=== PATIENT | male | born 1960 | race Caucasian/White ===

== ENCOUNTER → 2017-02-21 | Day surgery (SDC) | payer MEDICARE ==
[~2017-02-21] MED LIST: ACETAMINOPHEN PO; ADVIL200 M1 PO; CIPRO PO; CRESTOR PO; LORTAB 10/500 T1 TAB PO; NEURONTIN100 MG PO; OXYCODONE HCL15 MG PO; PHENERGAN PO; [UNRECOGNIZED DRUG - OTHER] PO
--- NOTE | ~2017-02-21 | OR ---
Unit #: [id number] #: [id number] Patient: RYANNE CEDEÑO [id number] [address] [address] [id number] MR#: [id number] NAME: RYANNE CEDEÑO ROOM: Date of Procedure: 02/21/2017 Admission Date: 02/21/2017 Surgeon: Miki Mejia M.D. : 1960 Attending Physician: Miki Mejia M.D. Primary Care Physician: Al Haynes M.D. OPERATIVE REPORT PREOPERATIVE DIAGNOSES Neck pain, cervical radiculopathy, degenerative cervical disk disease, cervical herniated nucleus pulposus. POSTOPERATIVE DIAGNOSES Neck pain, cervical radiculopathy, degenerative cervical disk disease, cervical herniated nucleus pulposus. PROCEDURE PERFORMED Cervical epidural steroid injection with fluoroscopic guidance for needle localization. 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 The patient failed to settle with conservative treatment. He was last treated 6 months ago almost with cervical epidural steroid injections did very well. He had resurgence of the pain after recently riding his motorcycle. It is not quite as bad as it was, but in the same distribution and in same nature, so the plan is to repeat epidural steroid injection today. DESCRIPTION OF PROCEDURE The patient was placed in the seated position. Standard monitors were applied. Sterile prep and drape of the cervical area was performed. The skin then at the C6 level was localized with 1% lidocaine. An 18-gauge [employer] Float[employer] needle was then advanced via hanging drop technique and fluoroscopic guidance in toward the epidural space. After confirming proper positioning with fluoroscopy and radiographic contrast, 80 mg of Depo-Medrol and 2 mL of 0.125% bupivacaine were deposited. The patient tolerated the procedure otherwise well and was discharged to recovery room in stable condition. Dictated by... Miki Mejia M.D. LHP/modl TD: 02/21/2017 23:53 JOB #: [id number] Unit #: [id number] #: [id number] Patient: RYANNE CEDEÑO OPERATIVE REPORT Page 1 of 1 X Miki Mejia MD X PROCEDURE OPERATIVE NOTE
== END | disposition home or self-care (01) ==
LOC: CCSC 09:27
DX: M50.122 Cervical disc disorder at C5-C6 level with radiculopathy (principal); M25.78 Osteophyte, vertebrae; M19.90 Unspecified osteoarthritis, unspecified site; F32.9 Major depressive disorder, single episode, unspecified; F17.200 Nicotine dependence, unspecified, uncomplicated; Z79.891 Long term (current) use of opiate analgesic; Z79.899 Other long term (current) drug therapy
CPT/HCPCS: J1040; J2250